=== PATIENT | female | born 1990 | race Hispanic/Latino ===

== ENCOUNTER 2018-05-14 21:48 | Emergency (ER) | payer OTHER ==
--- NOTE | 2018-05-14 22:36 | RAD ---
RIGHT ANKLE THREE VIEWS: 05/14/18 HISTORY: 27-year-old female with history of right ankle injury following fall. Small plantar calcaneal enthesophyte. No evidence for acute fracture or dislocation of the ankle. IMPRESSION: Unremarkable right ankle. No fracture or dislocation of the ankle proper. POS: [facility]
--- NOTE | 2018-05-14 22:39 | RAD ---
RIGHT FOOT THREE VIEWS: 05/14/18 HISTORY: 27-year-old female with history of right foot injury following a tip and fall. There is a Lisfranc fracture dislocation with lateral displacement of the base of the second metatars al relative to the medial and middle cuneiforms. There also appears to be probable associated minimal malalignment of the base of the third metatarsal. IMPRESSION: Lisfranc injury of the right midfoot with laterally displaced base of the second metatarsal and proba madi the third metatarsal relative to the medial and middle cuneiforms. POS: [facility]
[2018-05-14] MEDS ORDERED: HYDROcodone/Acetaminophen 5/325 mg Tablet ONE (22:50)
== END 2018-05-14 23:10 | disposition home or self-care (01) ==
LOC: SCSER 21:48
DX: S92.321A Displaced fracture of second metatarsal bone, right foot, initial encounter for closed fracture (principal); W18.09XA Striking against other object with subsequent fall, initial encounter
CPT/HCPCS: 29515